=== PATIENT | male | born 1945 | race Caucasian/White ===

== ENCOUNTER 2020-02-06 14:04 | Emergency (ER) | payer OTHER, MEDICARE ==
[2020-02-06] MEDS ORDERED: Sodium Chloride 0.9% 10 ML Syringe FLUSH PRN (14:05)
--- NOTE | 2020-02-06 14:05 | EDM.PDOC ---
ED HPI GENERAL MEDICAL PROBLEM - General Chief Complaint: Chest Pain Stated Complaint: INCOMING Time Seen by Provider: 02/06/20 14:04 Source of Information: Reports: Patient, EMS, Old Records, RN, RN Notes Reviewed History Limitations: Reports: No Limitations - History of Present Illness INITIAL COMMENTS - FREE TEXT/NARRATIVE: Pt arrives to ER by ambulance with report that [place] when he suddenly became dizzy, nauseated, and diaphoretic. Pt states he was a little nauseated earlier in the day, but it had passed. He lists an allergy to caffeine, but states he has to drink a small amount of caffeine every day around noon to prevent migraines. He is in [place] with family, lives in [place]. He denies chest pain, abdominal pain, back pain, fever, chills, shortness of breath, headache, congestion, ear pain, or muffled hearing. Pt states that his dizziness felt as if he was off balance, but later he also felt a little lightheaded. He has gagged and dry heaved a couple of times, but denies emesis. Yesterday he had diarrhea, but it resolved by last night. Pt feels that he may be dry, or dehydrated. No known sick contacts. Onset: Today, Sudden Duration: Constant Location: Reports: Generalized Severity: Severe Improves with: Reports: Immobilization, Rest Worsens with: Reports: Movement (of the head) Associated Symptoms: Reports: No Other Symptoms Treatments [employer]: Reports: IV/IO, Other Medication(s) (Zofran) - Related Data Allergies Allergy/AdvReac Type Severity Reaction Status Date / Time caffeine Allergy Headache Verified 02/06/20 14:58 venom-honey bee Allergy Anaphylactic Verified 02/06/20 14:58 [bee venom (honey bee)] Shock Home Meds: Home Meds Aspirin [Halfprin] 81 mg PO ASDIRECTED 01/31/15 [History] Omeprazole 20 mg PO DAILY 01/31/15 [History] Simvastatin [Zocor] 40 mg PO DAILY 01/31/15 [History] Fish Oil/Robson-3 Fatty Acids [Fish Oil 1,000 MG] 1 each PO ASDIRECTED 02/06/20 [ History] Gabapentin [Neurontin] 600 mg PO BEDTIME 02/06/20 [History] Losartan [Cozaar] 50 mg PO DAILY 02/06/20 [History] Nortriptyline 10 mg PO DAILY 02/06/20 [History] Past Medical History Other HEENT History: wears corrective lenses, has bilateral hearing aids Other Musculoskeletal History: compartment syndrome right calf - Past Surgical History Other Musculoskeletal Surgeries/Procedures:: fasciotomy to right lower leg ( "just over night") Social & Family History - Family History Family Medical History: Noncontributory - Living Situation & Occupation Living situation: Reports: , with Spouse Occupation: Retired ED ROS GENERAL - Review of Systems Review Of Systems: Comprehensive ROS is negative, except as noted in HPI. ED EXAM, GENERAL - Physical Exam Exam: See Below Exam Limited By: No Limitations General Appearance: Alert, WD/WN, No Apparent Distress, Anxious, Obese Eye Exam: Bilateral Eye: EOMI, Nystagmus (lateral gaze nystagmus), PERRL Ears: Normal External Exam, Normal Canal, Hearing Grossly Normal, Normal TMs Nose: Normal Inspection, Normal Mucosa, No Blood Throat/Mouth: Normal Lips, Normal Teeth, Normal Gums, Normal Oropharynx, Normal Voice, No Airway Compromise, Other (Dry oral membranes) Head: Atraumatic, Normocephalic Neck: Normal Inspection, Supple, Non-Tender, Full Range of Motion Respiratory/Chest: No Respiratory Distress, Lungs Clear, Normal Breath Sounds, No Accessory Muscle Use, Chest Non-Tender Cardiovascular: Normal Peripheral Pulses, Regular Rate, Rhythm, No Edema, No Gallop, No JVD, No Murmur, No Rub GI/Abdominal: Normal Bowel Sounds, Soft, Non-Tender, No Organomegaly, No Distention, No Abnormal Bruit, No Mass Back Exam: Normal Inspection Extremities: Normal Inspection, Normal Range of Motion, Non-Tender, Normal Capillary Refill, No Pedal Edema Neurological: Alert, Oriented, CN II-XII Intact, Normal Cognition, No Motor/ Sensory Deficits Psychiatric: Anxious, Flat Affect Skin Exam: Warm, Dry, Intact, Normal Color, No Rash EKG INTERPRETATION EKG Date: 02/06/20 Time: 14:02 Rhythm: Other (SR with PVC) Rate (Beats/Min): 78 [place]: Normal P-Wave: Present QRS: Normal (with tiny inferior Q waves) ST-T: Normal QT: Normal Comparison: NA - No Prior EKG Course - Vital Signs Last Recorded V/S: Last Vital Signs Temp 97.2 F 02/06/20 14:23 Pulse 78 02/06/20 14:23 Resp 14 02/06/20 14:23 BP 169/68 H 02/06/20 14:23 Pulse Ox 96 02/06/20 14:23 - Orders/Labs/Meds Orders: Active Orders 24 hr Category Date Time Status EKG 12 Lead [EKG Documentation Completion] [RC] STAT Care 02/06/20 14:05 Active Peripheral IV Care [RC] . DIRECTED Care 02/06/20 14:05 Active Peripheral IV Insertion Adult [OM.PC] Stat Oth 02/06/20 14:05 Ordered Labs: Laboratory Tests 02/06/20 02/06/20 02/06/20 Range/Units 14:15 14:15 14:15 WBC 8.0 (5.0-10.0) 10^3/uL RBC 4.80 (4.6-6.2) 10^6/uL Hgb 14.9 (14.0-18.0) g/dL Hct 44.0 (40.0-54.0) % MCV 91.7 (80-100) fL MCH 31.0 (27.0-34.0) pg MCHC 33.9 (33.0-35.0) g/dL Plt Count 211 (150-450) 10^3/uL Neut % (Auto) 53.7 (42.2-75.2) % Lymph % (Auto) 36.6 (20.5-50.1) % [place] % (Auto) 6.8 (2-8) % Eos % (Auto) 2.5 (1.0-3.0) % Baso % (Auto) 0.4 (0.0-1.0) % PT 9.5 (9.0-12.0) SEC INR 1.0 (0.9-1.2) APTT 24.3 (22.0-34.0) SEC D-Dimer, Quantitative < 100 (0-400) ng/mL Sodium 134 L (136-145) mmol/L Potassium 3.6 (3.5-5.1) mmol/L Chloride 98 (98-107) mmol/L Carbon Dioxide 25 (21-32) mmol/L Anion Gap 14.6 H (7-13) mEq/L BUN 19 H (7-18) mg/dL Creatinine 0.83 (0.70-1.30) mg/dL Est Cr Clr Drug Dosing 90.78 mL/min Estimated GFR (MDRD) > 60 BUN/Creatinine Ratio 22.9 (No establ ref range) Glucose 126 H (74-99) mg/dL Calcium 8.3 L (8.5-10.1) mg/dL Total Bilirubin 0.4 (0.2-1.0) mg/dL AST 23 (15-37) U/L ALT 46 (16-63) U/L Alkaline Phosphatase 78 (46-116) U/L Troponin I < 0.017 (0.000-0.056) ng/mL B-Natriuretic Peptide 35 (0-100) pg/ml Total Protein 7.0 (6.4-8.2) g/dL Albumin 4.0 (3.4-5.0) g/dL Globulin 3.0 Albumin/Globulin Ratio 1.3 Lipase 73 (73-393) U/L Meds: Medications Discontinued Medications Generic Name Dose Route Start Last Admin Trade Name Freq PRN Reason Stop Dose Admin Aspirin 324 mg 02/06/20 14:06 Aspirin PO 02/06/20 14:07 ONETIME ONE Aspirin Confirm 02/06/20 14:32 02/06/20 15:17 Aspirin Administered 02/06/20 14:33 Not Given Dose 324 mg .ROUTE .STK-MED ONE Dexamethasone 10 mg 02/06/20 14:40 02/06/20 14:50 Dexamethasone IVPUSH 02/06/20 14:41 10 mg ONETIME ONE Administration Famotidine 20 mg 02/06/20 14:28 02/06/20 14:41 Pepcid IVPUSH 02/06/20 14:29 20 mg ONETIME ONE Administration Sodium Chloride 1,000 mls @ 999 mls/hr 02/06/20 15:06 02/06/20 15:16 Normal Saline IV 02/06/20 16:06 999 mls/hr .BOLUS ONE Administration Lorazepam 0.5 mg 02/06/20 14:41 02/06/20 14:51 Ativan IVPUSH 02/06/20 14:42 0.5 mg ONETIME ONE Administration Meclizine HCl 25 mg 02/06/20 14:27 02/06/20 14:58 Antivert PO 02/06/20 14:28 Not Given ONETIME ONE Ondansetron HCl 4 mg 02/06/20 14:28 02/06/20 14:41 Zofran IV 02/06/20 14:29 4 mg ONETIME ONE Administration Sodium Chloride 10 ml 02/06/20 14:05 Saline Flush FLUSH ASDIRECTED PRN Keep Vein Open - Radiology Interpretation Free Text/Narrative:: XR Chest: no acute process per Rad. report. Departure - Departure Time of Disposition: 16:00 Disposition: Home, Self-Care 01 Condition: Good Clinical Impression: Dehydration, Vertigo, Nausea Instructions: Nausea and Vomiting, Adult, [id number], Dizziness, [id number] , Dehydration, Elderly, [id number] Forms: ED Department Discharge Additional Instructions: Rx: Meclizine 25mg *For dizziness. Do not drive while under the influence of this medication. Rx: Zofran 4mg *For nausea. Drink plenty of water. Follow up in clinic for recheck by your doctor within one week. Return to ER if worse at any time. Sepsis Event Note (ED) - Focused Exam Vital Signs: Vital Signs Temp Pulse Resp BP Pulse Ox 02/06/20 14:23 97.2 F 78 14 169/68 H 96 - My Orders Last 24 Hours: My Active Orders 02/06/20 14:05 EKG 12 Lead [EKG Documentation Completion] [RC] STAT Peripheral IV Care [RC] . DIRECTED Peripheral IV Insertion Adult [OM.PC] Stat - Assessment/Plan Last 24 Hours: My Active Orders 02/06/20 14:05 EKG 12 Lead [EKG Documentation Completion] [RC] STAT Peripheral IV Care [RC] . DIRECTED Peripheral IV Insertion Adult [OM.PC] Stat
[2020-02-06] MEDS ORDERED: Aspirin 81 MG Tab.Chew PO ONE (14:06)
[2020-02-06] MEDS ORDERED: Meclizine 12.5 MG Tab PO ONE (14:27)
[2020-02-06 14:28] VITALS: BP 169/68; PULSE 78
[2020-02-06] MEDS ORDERED: Ondansetron 4 MG/2 ML SDV IV ONE (14:28)
[2020-02-06] MEDS ORDERED: Famotidine 20 MG/2 ML SDV IVPUSH ONE (14:28)
[2020-02-06] MEDS ORDERED: Aspirin 81 MG Tab.Chew ONE (14:32)
--- NOTE | 2020-02-06 14:35 | CR ---
EXAMINATION: Chest 1V Frontal SEX: Male AGE: 74 years CLINICAL HISTORY: 74-year-old male complaining of CHEST PAIN. INTERPRETATION: Poor inspiratory effort crowds and accentuates the lung markings. 1. Normal cardiac size and configuration. 2. No pulmonary vascular congestion, cephalization of flow or alveolar edema. No pleural effusions. 3. No lung mass, hilar lymphadenopathy or focal lobar pneumonia. 4. No atelectasis/collapse. 5. No pneumothorax or pneumomediastinum. Midline tracheal bronchial airway unremarkable. CONCLUSION: No acute cardiopulmonary abnormality.
[2020-02-06 14:38] LABS: PTT,PARTIAL THROMBOPLSTIN TIME 24.3 SEC (22.0-34.0)
[2020-02-06] MEDS ORDERED: Dexamethasone 4 MG/ML SDV IVPUSH ONE (14:40)
[2020-02-06] MEDS ORDERED: LORazepam 2 MG/ML SDV IVPUSH ONE (14:41)
[2020-02-06] MEDS ORDERED: Sodium Chloride 0.9% 1,000 ML IV ONE (15:06)
[2020-02-06 15:41] LABS: ANION GAP 14.6 mEq/L (7-13); CHLORIDE,CL 98 mmol/L (98-107); SODIUM,NA 134 mmol/L (136-145)
== END 2020-02-06 16:19 | disposition home or self-care (01) ==
LOC: DL.ED 14:04
DX: E86.0 Dehydration (principal); R11.0 Nausea; I49.3 Ventricular premature depolarization; Z91.030 Bee allergy status; Z91.018 Allergy to other foods; Z79.82 Long term (current) use of aspirin; Z79.899 Other long term (current) drug therapy
CPT/HCPCS: 36415; 71045; 80053; 83690; 83880; 84484; 85025; 85379; 85610; 85730; 93005; 93010; 96361; 96374; 96375; 99284; 99285-25; J1100; J2060; J2405; J3490; J7030